=== PATIENT | male | born 1990 | race Caucasian/White ===

== ENCOUNTER 2021-07-18 18:04 | Emergency (ER) | payer OTHER ==
[~2021-07-18 18:04] MED LIST: BENADRYL 50MG C50 MG PO; EPIPEN 2-P0.3 MG/0.3 INJ; PEPCID20 MG PO; PREDNISONE50 MG PO
[2021-07-18 18:50] LABS: HEMOGLOBIN 17.7 gm/dl (14.0-17.5); RED BLOOD COUNT 5.86 M/UL (4.20-5.50); WHITE BLOOD COUNT 5.3 K/UL (4.5-11.0)
[2021-07-18 19:27] LABS: BUN/CREATININE RATIO 10 (0-10)
== END 2021-07-18 20:03 | disposition left against medical advice (07) ==
LOC: ER1 18:04
PROVIDERS: Preventive Medicine Occupational Medicine
DX: K66.1 Hemoperitoneum (principal); D62 Acute posthemorrhagic anemia
CPT/HCPCS: 71045; 80053; 85025; 93005; 99283; J0171; J1200; J2405; J2930